=== PATIENT | male | born 1940 | race Caucasian/White ===

== ENCOUNTER 2016-07-07 05:45 | Inpatient (IN) | payer OTHER ==
[2016-07-07] MEDS ORDERED: LIDOCAINE 1% 5 ML SDV ONE (06:01)
[2016-07-07] MEDS ORDERED: BUPIVACAINE/EPI 0.5% 30 ML SDV ONE ×2 (06:37→10:25)
[2016-07-07] MEDS ORDERED: PHENYLEPHRINE HCL 100 MCG/ML SYR ONE (06:44)
[2016-07-07] MEDS ORDERED: fentaNYL 250 MCG/5 ML INJ ONE (06:44)
[2016-07-07] MEDS ORDERED: ROCURONIUM 100 MG/10 ML VIAL ONE ×2 (06:44→08:25)
[2016-07-07] MEDS ORDERED: PROPOFOL 200 MG/20 ML VIAL ONE (06:46)
[2016-07-07] MEDS ORDERED: PROPOFOL/EMULSION 500 MG/50 ML BOTTLE IV ONE (06:47)
[2016-07-07] MEDS ORDERED: DEXAMETHASONE 4 MG/ML VIAL ONE ×3 (06:49→15:41)
[2016-07-07] MEDS ORDERED: BACITRACIN 50,000 UNITS/10 ML SYR IRR ONE ×2 (06:49→08:00)
[2016-07-07] MEDS ORDERED: POLYMYXIN B SULFATE 500,000 UNIT/10 ML SYR IRR ONE ×2 (06:49→08:00)
[2016-07-07] MEDS ORDERED: LIDOCAINE 2% 5 ML SDV ONE (06:50)
[2016-07-07] MEDS ORDERED: MIDAZOLAM 2 MG/2 ML VIAL ONE ×4 (06:52→15:30)
[2016-07-07] MEDS ORDERED: ONDANSETRON 4 MG/2 ML VIAL IVP PRN (06:53)
[2016-07-07] MEDS ORDERED: ACETAMINOPHEN 325 MG TAB PO PRN (06:53)
[2016-07-07] MEDS ORDERED: ACETAMINOPHEN 325 MG TAB ONE (06:57)
[2016-07-07] MEDS ORDERED: clonazePAM 0.5 MG TAB PO PRN (06:58)
[2016-07-07] MEDS ORDERED: ROPI/epINEPH/KETOROLAC/morphINE IU ONE (07:00)
[2016-07-07] MEDS ORDERED: ceFAZolin 2 GM/DEXTROSE 100 ML IV ONE (07:00)
[2016-07-07] MEDS ORDERED: ACETAMINOPHEN 500 MG TAB PO ONE (07:00)
[2016-07-07] MEDS ORDERED: FAMOTIDINE 20 MG TAB PO ONE (07:00)
[2016-07-07] MEDS ORDERED: CHLORHEXIDINE GLUC HIBICLENS 118 ML BTL TP ONE (07:00)
[2016-07-07] MEDS ORDERED: D5W 1/2 NS W/ 20 KCl/L 1,000 ML IV SCH (07:00)
[2016-07-07] MEDS ORDERED: ACETAMINOPHEN 325 MG TAB PO ONE (07:30)
[2016-07-07] MEDS ORDERED: PHENYLEPHRINE 10 MG/ML SDV ONE (07:55)
[2016-07-07] MEDS ORDERED: NON-FORMULARY NEW DRUG (Metformin Hcl [Metformin 1000 Mg] 1,000 MG) PO SCH (08:00)
[2016-07-07] MEDS ORDERED: LR 1,000 ML IV ONE (08:04)
[2016-07-07] MEDS ORDERED: LIDOCAINE 1% 5 ML SDV ID PRN (08:04)
[2016-07-07] MEDS ORDERED: THROMBIN (RECOMBINANT) 5,000 UNIT VIAL TP ONE (08:11)
[2016-07-07] MEDS ORDERED: CALCIUM CHLORIDE 1 GM/10 ML INJ ONE (08:11)
[2016-07-07] MEDS ORDERED: ONDANSETRON 4 MG/2 ML VIAL ONE (08:27)
[2016-07-07] MEDS ORDERED: NEOSTIGMINE METHYLSULFATE 5 MG/5 ML SYR ONE (08:51)
[2016-07-07] MEDS ORDERED: GLYCOPYRROLATE 0.2 MG/1 ML VIAL ONE ×2 (08:52)
[2016-07-07] MEDS ORDERED: Herbals/Supplements -Info Only PO SCH (09:00)
[2016-07-07] MEDS ORDERED: LABETALOL HCL 5 MG/ML 20 ML MDV ONE ×2 (09:16)
[2016-07-07] MEDS ORDERED: fentaNYL 100 MCG/2 ML INJ ONE (09:37)
[2016-07-07] MEDS ORDERED: HYDROmorphONE/DILAUDID 2 MG/ML INJ ONE (09:59)
[2016-07-07] MEDS: KETOROLAC 15 MG/1 ML SDV IVP SCH ×3 (11:40→22:43)
[2016-07-07] MEDS: OXYCODONE/APAP 5/325 TAB PO PRN (12:10)
[2016-07-07] MEDS: ceFAZolin 2 GM/DEXTROSE 100 ML IV SCH ×2 (13:21→20:21)
[2016-07-07] MEDS: BENAZEPRIL HCL 10 MG TAB PO SCH (14:24)
[2016-07-07] MEDS: GLIMEPIRIDE 1 MG TAB PO SCH (14:26)
[2016-07-07] MEDS ORDERED: ROPIVACAINE HCL 150 MG/30 ML INJ ONE (15:30)
[2016-07-07] MEDS: ASCORBIC ACID 500 MG TAB PO SCH ×2 (19:21→20:18)
[2016-07-07] MEDS: metFORMIN HCL 500 MG TAB PO SCH ×2 (19:22→22:44)
[2016-07-07] MEDS: DOCUSATE SODIUM 100 MG CAP PO SCH ×2 (19:22→20:18)
[2016-07-07] MEDS: MULTIVITAMINS 1 EACH TAB PO SCH (19:22)
[2016-07-07] MEDS: OMEGA-3 FATTY ACIDS 1,000 MG CAP PO SCH ×2 (19:22→20:18)
[2016-07-08] MEDS: KETOROLAC 15 MG/1 ML SDV IVP SCH (06:30)
[2016-07-08] MEDS ORDERED: oxyCODONE IR 5 MG TAB PO PRN (06:50)
--- NOTE | 2016-07-08 07:06 | SOAPPROG ---
SOAP Progress Note Assessment/Plan: Assessment: s/p left rev tsa Plan: d/c home discussed pain control f/u at two weeks 07/08/16 07:04 Subjective: doing well 3 blocks now no pain no cp or sob no sensation to left arm Objective: Vital Signs Temp Pulse Resp BP Pulse Ox 36.8 C 74 16 124/73 H 94 07/08/16 03:03 07/08/16 03:03 07/08/16 03:03 07/08/16 03:03 07/08/16 03:03 07/07/16 07/08/16 07/09/16 05:59 05:59 05:59 Intake Total 4000 Output Total 1200 Balance 2800 dressing intact no sensation to left upper ext warm and pink xrays stable alignment, no fx or lucency ICD10 Worksheet Patient Problems: Problems Problem Status Onset Arthritis of shoulder region, left Acute - ICD10 Problem Qualifiers (1) Arthritis of shoulder region, left
[2016-07-08 07:24] VITALS: BP 131/59; PULSE 59; RESP 14; TEMP 97.9; O2SAT 93
[2016-07-08] MEDS: DOCUSATE SODIUM 100 MG CAP PO SCH (08:05)
[2016-07-08] MEDS: OMEGA-3 FATTY ACIDS 1,000 MG CAP PO SCH (08:05)
[2016-07-08] MEDS: BENAZEPRIL HCL 10 MG TAB PO SCH (08:06)
[2016-07-08] MEDS: GLIMEPIRIDE 1 MG TAB PO SCH (08:06)
[2016-07-08] MEDS: ASCORBIC ACID 500 MG TAB PO SCH (08:06)
[2016-07-08] MEDS: metFORMIN HCL 500 MG TAB PO SCH (08:06)
[2016-07-08] MEDS: MULTIVITAMINS 1 EACH TAB PO SCH (08:06)
--- NOTE | 2016-07-08 09:20 | GOP ---
DATE OF OPERATION: 07/07/2016 SURGEON: Carl Fuentes MD AERIAL PHOTOGRAPHER: Jarod Leo, ELECTRONIC [employer] SYSTEM OPERATOR, [facility]. He was a medical necessity for the entirety of the case. PREOPERATIVE DIAGNOSIS: Left shoulder rotator cuff arthropathy. POSTOPERATIVE DIAGNOSIS: Left shoulder rotator cuff arthropathy. PROCEDURE PERFORMED: Left shoulder reverse total shoulder arthroplasty. FINDINGS: SPECIMENS: To Pathology, the humeral head, implants, DePuy Delta Xtend, size 12 stem, 2 body 9 mm p olyethylene spacer, 42 mm glenosphere, metaglene component and 4 screws. 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 Given the combination of the 2, he was unable to participate in activities of daily living. He has limitations in his daily function. He has failed all attempts at conservat carey management. I therefore recommended total shoulder arthroplasty with a reverse shoulder replace ment. He understood the risks, benefits, alternatives, and wished to proceed. Written consent was signed and placed in patient's chart. DESCRIPTION OF PROCEDURE: The patient was identified in the preanesthesia area. The left shoulder clearly demarcated as the operative site with indelible marker. He was given 2 g of Ancef intraveno usly en route to the operative suite. In the OR, general endotracheal anesthesia was administered. Attention was turned to the left shoulder which was sterilely prepped and draped in usual fashion. He was positioned in the beach chair position. All bony prominences were well padded, including us e of a neurological head sawyer. An interscalene block had been placed by Anesthesia. Appropriate time-out procedure was carried out. The limb was then sterilely prepped and draped in usual fashion . An [place]an drape was used to occlude the margins of the draping an anterior deltopectoral incision was made. This was carried sharply through the skin and subcutaneous tissue, directly to the cephal ic vein which was retracted with several fibers of the deltoid in a medial direction. The deltoid w as then elevated off the subdeltoid bursa. A self-retaining retractor placed. A linear incision wa s made through the subscapularis edge to the biceps tendon sheath, and this was elevated in a single layer through the rotator cuff interval. There was damage to the supraspinatus tendon as previous. The biceps was then tenodesed in this area. The subscapularis was tagged for later repair. The s houlder was externally rotated. This delivered the humeral head into the wound. Retractors were pl aced to go over the superior and inferior aspect. A bony cut was made. The head fragment was withd rawn. The inferior marginal osteophytes were sharply excised. The arm was manipulated and delivere d the head through the wound. Gentle broaching was carried out to a size 12 canal reamer. A stem w as then placed, followed by reaming of the proximal area for a size 2 interbody stem. A hub cap was then placed and retractors placed allowing visualization of the underlying glenoid. The remnants o f the labrum were sharply excised. A pin was placed in the posterior inferior aspect of the glenoid into the central aspect of the . This was reamed with the appropriate sized reamer, and superior aspect was debrided with a rongeur and superior reamer. A metaglene component was then sea padmaja, locked with 3 locking screws under compression and a single nonlocking screw. A 42 mm glenosph ere was then impacted and confirmed to be fully seated over the metaglene component. The taper was fully engaged. The humeral head was then delivered through the wound. A trial stem was placed, and ultimately, a 9 mm spacer was selected. The final stem was then impacted, confirmed to be fully se ated. A 9 mm polyethylene spacer was then placed, confirmed to be fully seated. The shoulder was i rrigated with pulsatile lavage solution, and the shoulder reduced. This was taken through a full ra nge of motion and was stable and appropriate without evidence of subluxation or instability. The wo und was copiously irrigated. The subscapularis repair across the anterior aspect of the shoulder us ing #1 Ethibond suture. The subcutaneous tissue closed using 0 Vicryl, 2-0 Monocryl, and the skin w as stapled. The margins were instilled with platelet-rich plasma and a joint cocktail of ropivacain e, morphine, Toradol, epinephrine. A sterile dressing was applied, followed by a Cryo/Cuff and slin g. The patient was awakened and taken to recovery room in good, stable condition. TOTAL TOURNIQUET TIME: None. COMPLICATIONS: None. /[id number]/MODL
--- NOTE | 2016-07-08 09:35 | GDS ---
ADMISSION DIAGNOSIS: Left shoulder rotator cuff arthropathy. POSTOP DIAGNOSIS: Left shoulder rotator cuff arthropathy. PROCEDURE: Left shoulder reverse total shoulder arthroplasty. OPERATIVE INDICATIONS: The patient is a 75-year-old gentleman, with end-stage arthritis and rotator cuff pathology to his left shoulder. Clinical and radiographic features are consistent with this. He has failed attempts at conservative management. He continues to have persistent pain and limita tion. I have therefore recommended surgical intervention. HOSPITAL COURSE: The patient was admitted to the hospital floor after uncomplicated total shoulder arthroplasty, on the left side. He had difficulty with the postoperative pain control and ultimatel y underwent 3 separate nerve blocks. After placement of the 3rd nerve block he had complete relief of his pain. At the time of discharge, he was tolerating an oral diet. His pain is well controlled on oral medicines. He is voiding without difficulty. He understands his precautions. DISCHARGE ACTIVITY: He is pendulum range of motion. Daily dressing changes. May shower without th e bandage. No soaking or immersion. Follow up in 2 weeks. Seek attention for increasing redness, swelling, drainage, discharge. /[id number]/MODL
[2016-07-08] MEDS: OXYCODONE/APAP 5/325 TAB PO PRN (10:13)
--- NOTE | 2016-07-08 12:44 | POSTANESTH ---
Post Anesthetic Evaluation Respiratory Status: Normal, Stable Level of Consciousness/Mental Status: Can Participate in Eval Pain Control: Adequate, Prn Tx Ordered Nausea/Vomiting Control: Adequate, Prn Tx Ordered Complications Possibly Related to Anesthesia: None Noted Notes: Interscalene block provided good pain control throughout the night. Appears resolving normally this morning as expected 16 hours later.
== END 2016-07-08 12:34 | disposition home or self-care (01) | DRG 483 ==
LOC: F3N 05:45
PROVIDERS: ADMIT Orthopaedic Surgery; ATTEND Orthopaedic Surgery
PROC: 0RRK00Z Replacement of Left Shoulder Joint with Reverse Ball and Socket Synthetic Substitute, Open Approach (ICD-10-PCS; principal; 2016-07-07 07:15)
DX: M19.012 Primary osteoarthritis, left shoulder (principal); M02.81 Other reactive arthropathies, shoulder; I10 Essential (primary) hypertension; E11.9 Type 2 diabetes mellitus without complications; E78.00 Pure hypercholesterolemia, unspecified; G47.33 Obstructive sleep apnea (adult) (pediatric); I49.3 Ventricular premature depolarization; Z79.84 Long term (current) use of oral hypoglycemic drugs
CPT/HCPCS: 97161-GP; 97165-GO; C1713; G8978-GP-CI; G8979-GP-CI; G8980-GP-CI; G8987-GO-CJ; G8988-GO-CJ; G8989-GO-CJ; J0171; J0690; J1100; J1170; J1885; J2250; J2370; J2405; J2704; J2710; J2795; J3010; J3490

== ENCOUNTER → 2016-08-19 | Outpatient (CLI) | payer OTHER | LOC: BMCIMAGING 10:46 | PROVIDERS: ATTEND Physician Assistant | DX: Z09 Encounter for follow-up examination after completed treatment for conditions other than malignant neoplasm (principal); Z96.612 Presence of left artificial shoulder joint ==

== ENCOUNTER → 2016-08-22 | Outpatient (CLI) | payer OTHER | LOC: BMCIMAGING 13:55 | PROVIDERS: ATTEND Internal Medicine | DX: J98.11 Atelectasis (principal) ==

== ENCOUNTER → 2016-10-08 | Outpatient (CLI) | payer OTHER | LOC: BMCIMAGING 13:21 | PROVIDERS: ATTEND Orthopaedic Surgery | DX: Z47.1 Aftercare following joint replacement surgery (principal); Z96.612 Presence of left artificial shoulder joint ==

== ENCOUNTER → 2016-11-19 | Outpatient (CLI) | payer OTHER | LOC: BMCIMAGING 13:16 | PROVIDERS: ATTEND Orthopaedic Surgery | DX: Z47.89 Encounter for other orthopedic aftercare (principal) ==

== ENCOUNTER → 2017-01-28 | Outpatient (CLI) | payer OTHER | LOC: BMCIMAGING 13:29 | PROVIDERS: ATTEND Orthopaedic Surgery | DX: Z47.1 Aftercare following joint replacement surgery (principal); Z96.612 Presence of left artificial shoulder joint ==